=== PATIENT | female | born 1955 | race African-American/Black ===

== ENCOUNTER 2016-10-12 19:04 | Inpatient (IN) | payer BC, OTHER ==
[~2016-10-12] VITALS: Ht 162.6 cm; Wt 81.2 kg
[~2016-10-12 19:04] MED LIST: AMLO10TA2 PO; HYDR-2678 PO; LEVO500T38 PO; METR500T PO; ONDA4TAB10 SL
--- NOTE | 2016-10-12 19:35 | PHYS DOC ---
Past Medical History Past Medical History: Diverticulitis, GERD, Hypertension, Other Additional Past Medical Histor: sarcoidosis Past Surgical History: Appendectomy, Cholecystectomy, Hysterectomy, Other Additional Past Surgical Histo: adhesion surgery, wisdom teeth, hernia repair, hemorroid Alcohol Use: Occasionally Drug Use: None Adult General Chief Complaint Chief Complaint: HYPERTENSION HPI HPI 61-year-old female presents with worsening headache and lightheadedness as well as some mild sensory abnormalities in her right lower extremity that she states it worsened throughout today and yesterday. Patient does have history of hypertension for which she takes hydralazine daily and states she's been compliant. She took her blood pressure was extremely elevated today 1 to come in for evaluation. Upon arrival her blood pressure is 236/116. She denies any history of cardiac disease. She denies any chest pain or shortness of breath. Review of Systems Review of Systems Constitutional: Denies fever or chills [] Eyes: Denies change in visual acuity, redness, or eye pain [] HENT: Denies nasal congestion or sore throat [] Respiratory: Denies cough or shortness of breath [] Cardiovascular: No additional information not addressed in HPI [] GI: Denies abdominal pain, nausea, vomiting, bloody stools or diarrhea [] : Denies dysuria or hematuria [] Musculoskeletal: Denies back pain or joint pain [] Integument: Denies rash or skin lesions [] Neurologic: Has headache, denies focal weakness, has sensory changes [] Endocrine: Denies polyuria or polydipsia [] Current Medications Current Medications Current Medications Medications (Trade) Dose Ordered Sig/Maritza Start Time Stop Time Status Last Admin Dose Admin Nicardipine HCl/ Sodium Chloride (Cardene/Iv Sodium Chloride 0.9% 250ml) 270 ml @ 0 mls/hr CONT PRN 10/12/16 19:45 10/12/16 19:52 50 MLS/HR Allergies Allergies Allergies Coded Allergies Type Severity Reaction Last Updated Verified codeine Allergy Unknown 07/12/14 No Physical Exam Physical Exam Constitutional: Well developed, well nourished, no acute distress, non-toxic appearance. [] HENT: Normocephalic, atraumatic, bilateral external ears normal, oropharynx moist, no oral exudates, nose normal. [] Eyes: PERRLA, EOMI, conjunctiva normal, no discharge. [] Neck: Normal range of motion, no tenderness, supple, no stridor. [] Cardiovascular:Heart rate regular rhythm, no murmur [] Lungs & Thorax: Bilateral breath sounds clear to auscultation [] Abdomen: Bowel sounds normal, soft, no tenderness, no masses, no pulsatile masses. [] Skin: Warm, dry, no erythema, no rash. [] Back: No tenderness, no CVA tenderness. [] Extremities: No tenderness, no cyanosis, no clubbing, ROM intact, no edema. [] Neurologic: Alert and oriented X 3, normal motor function, normal sensory function, no focal deficits noted. [] Psychologic: Affect normal, judgement normal, mood normal. [] Current Patient Data Vital Signs Vital Signs Date Time Temp Pulse Resp B/P Pulse Ox O2 Delivery O2 Flow Rate FiO2 10/12/16 19:30 98.5 88 13 240/121 100 Room Air 98.5 Lab Values Laboratory Tests Test 10/12/16 19:22 White Blood Count 12.1x10^3/uL (4.0-11.0) H Red Blood Count 4.69x10^6/uL (3.50-5.40) Hemoglobin 13.4g/dL (12.0-15.5) Hematocrit 40.7% (36.0-47.0) Mean Corpuscular Volume 87fL (79-100) Mean Corpuscular Hemoglobin 29pg (25-35) Mean Corpuscular Hemoglobin Concent 33g/dL (31-37) Red Cell Distribution Width 14.6% (11.5-14.5) H Platelet Count 196x10^3/uL (140-400) Neutrophils (%) (Auto) 61% (31-73) Lymphocytes (%) (Auto) 32% (24-48) Monocytes (%) (Auto) 6% (0-9) Eosinophils (%) (Auto) 1% (0-3) Basophils (%) (Auto) 1% (0-3) Neutrophils # (Auto) 7.3x10^3uL (1.8-7.7) Lymphocytes # (Auto) 3.9x10^3/uL (1.0-4.8) Monocytes # (Auto) 0.7x10^3/uL (0.0-1.1) Eosinophils # (Auto) 0.1x10^3/uL (0.0-0.7) Basophils # (Auto) 0.1x10^3/uL (0.0-0.2) Sodium Level 140mmol/L (136-145) Potassium Level 3.9mmol/L (3.5-5.1) Chloride Level 103mmol/L (98-107) Carbon Dioxide Level 26mmol/L (21-32) Anion Gap 11 (6-14) Blood Urea Nitrogen 17mg/dL (7-20) Creatinine 0.8mg/dL (0.6-1.0) Estimated GFR (Cockcroft-Gault) 88.5 Glucose Level 104mg/dL (70-99) H Calcium Level 9.8mg/dL (8.5-10.1) Troponin I Quantitative < 0.017ng/mL (0.000-0.055) Laboratory Tests 10/12/16 19:22 Laboratory Tests 10/12/16 19:22 EKG EKG EKG is interpreted by me shows a sinus rhythm with rate 89 bpm. There are no acute ST findings on this EKG. Intervals are normal. There is no ectopy. Radiology/Procedures Radiology/Procedures One view of the chest as interpreted by id does not reveal an acute cardiopulmonary process. CT of the head demonstrated the following: No acute intracranial hemorrhage or midline shift or mass-effect or hydrocephalus or extra-axial fluid collection is seen. No focal hypodense area is seen to indicate an acute infarct or edema radiographically. No skull fracture or pneumocephalus is seen. No opacification of the mastoid sinuses or the paranasal sinuses is seen. The maxillary sinuses are not completely seen in this study Course & Med Decision Making Course & Med Decision Making Pertinent Labs and Imaging studies reviewed. (See chart for details) This 61-year-old female who has uncontrolled hypertension is very symptomatic with her elevated blood pressure and for this reason I will be admitting her for hypertensive urgency. I will order nicardipine drip to necessitate a gradual reduction in her blood pressure and also obtain lab work and head CT to rule out any other acute causes. Her laboratory workup is unremarkable. EKG and chest x-ray were negative for any acute abnormalities. Her head CT was also negative. I Cardene drip was ordered and her blood pressure did improve slightly. Upon my reassessment, the patient had a blood pressure 175/95. Per the nurse that transported the patient to the ICU, a repeat blood pressure was 189/91 and she was recalibrated with her nicardipine. Her case was discussed with the hospitalist, Dr. Liu, who agreed with this treatment plan and the need for admission. I believe her symptoms are likely stress related and hypertensive urgency induced. Approximately 30 minutes of critical care time were used in consultation with specialists. Dragon Disclaimer Dragon Disclaimer This electronic medical record was generated, in whole or in part, using a voice recognition dictation system. Critical Care Time Critical care time was 30 minutes exclusive of procedures. Departure Departure Impression: Primary Impression: Hypertensive urgency Additional Impression: Headache Disposition: ADMITTED INPATIENT Admitting Physician: Shelton Liu Condition: STABLE Referrals: MARIE DO MD (PCP) Critical Care Time Critical care time was 30 minutes exclusive of procedures. Problem Qualifiers JANE DORSEY DO Oct 12, 2016 19:35
[2016-10-12 19:37] LABS: BASO # 0.1 x10^3/uL (0.0-0.2); BASO % 1 % (0-3); EOS % 1 % (0-3); HEMATOCRIT 40.7 % (36.0-47.0); HEMOGLOBIN 13.4 g/dL (12.0-15.5); LYMPH # 3.9 x10^3/uL (1.0-4.8); LYMPH % 32 % (24-48); MEAN CORPUSCULAR HEMOGLOBIN 29 pg (25-35); MEAN CORPUSCULAR HGB CONC 33 g/dL (31-37); MEAN CORPUSCULAR VOLUME 87 fL (79-100); MONO % 6 % (0-9); NEUT % 61 % (31-73); PLATELET COUNT 196 x10^3/uL (140-400); RED BLOOD COUNT 4.69 x10^6/uL (3.50-5.40); RED CELL DISTRIBUTION WIDTH 14.6 % (11.5-14.5); WHITE BLOOD COUNT 12.1 x10^3/uL (4.0-11.0)
[2016-10-12] MEDS: NICARDIPINE HCL 50 MG in IV NORMAL SALINE 250ML 250 ML IV PRN (19:52)
--- NOTE | 2016-10-12 20:06 | RAD ---
PROCEDURE Noncontrast head CT HISTORY Headache with hypertension today. Dizziness. Lower extremity numbness. TECHNIQUE Noncontrast axial cross sectional CT scanning of the head was performed. One or more of the following individualized dose reduction techniques were utilized for this study: 1. Automated exposure control 2. Adjustment of the mA and/or kV according to patient size 3. Use of iterative reconstruction technique COMPARISON None available. FINDINGS No acute intracranial hemorrhage or midline shift or mass-effect or hydrocephalus or extra-axial fluid collection is seen. No focal hypodense area is seen to indicate an acute infarct or edema radiographically. No skull fracture or pneumocephalus is seen. No opacification of the mastoid sinuses or the paranasal sinuses is seen. The maxillary sinuses are not completely seen in this study. IMPRESSION No acute intracranial abnormality is seen. Electronically signed by: Zoran Crowder MD (Oct 12, 2016 20:05:29)
[2016-10-12] MEDS ORDERED: FENTANYL PF 100 MCG/2 ML VIAL. IV ONE (20:45)
[2016-10-12] MEDS ORDERED: ONDANSETRON PF 4 MG/2 ML VIAL. IV ONE (20:45)
[2016-10-12] MEDS ORDERED: FENTANYL PF 100 MCG/2 ML VIAL. IV PRN (20:45)
[2016-10-12] MEDS ORDERED: ONDANSETRON PF 4 MG/2 ML VIAL. IV PRN ×2 (20:45→21:45)
[2016-10-12] MEDS ORDERED: ACETAMINOPHEN 325 MG TABLET. PO PRN (20:45)
[2016-10-12 21:00] LABS: CALCIUM 9.8 mg/dL (8.5-10.1); CREATININE 0.8 mg/dL (0.6-1.0); GFR 88.5; POTASSIUM 3.9 mmol/L (3.5-5.1)
[2016-10-12 21:30] VITALS: BP 165/85
[2016-10-12 21:45] VITALS: BP 172/78
[2016-10-12] MEDS ORDERED: hydrALAZINE 20 MG/ML VIAL. IVP PRN (21:45)
[2016-10-12] MEDS ORDERED: ALBUTEROL SULFATE 2.5 MG/3 ML NEBU. NEB PRN (21:45)
[2016-10-12 22:00] VITALS: BP 160/76
[2016-10-12 22:15] VITALS: BP 157/82
[2016-10-12 23:00] VITALS: BP_SYST 107; BP_SYST 168; BP_DIAS 77; BP_DIAS 83
[2016-10-12] MEDS ORDERED: HYDR-2869 PO (23:41)
[2016-10-13] VITALS (16 sets, daily range): BP systolic 107–171; BP diastolic 50–94
[2016-10-13] MEDS: NICARDIPINE HCL 50 MG in IV NORMAL SALINE 250ML 250 ML IV PRN ×2 (01:10→05:18)
[2016-10-13] MEDS: ACETAMINOPHEN 325 MG TABLET. PO PRN ×2 (01:18→18:37)
[2016-10-13 06:17] LABS: BASO # 0.1 x10^3/uL (0.0-0.2); BASO % 0 % (0-3); EOS % 0 % (0-3); HEMATOCRIT 40.2 % (36.0-47.0); HEMOGLOBIN 13.3 g/dL (12.0-15.5); LYMPH # 3.1 x10^3/uL (1.0-4.8); LYMPH % 22 % (24-48); MEAN CORPUSCULAR HEMOGLOBIN 28 pg (25-35); MEAN CORPUSCULAR HGB CONC 33 g/dL (31-37); MEAN CORPUSCULAR VOLUME 86 fL (79-100); MONO % 5 % (0-9); NEUT % 73 % (31-73); PLATELET COUNT 197 x10^3/uL (140-400); RED BLOOD COUNT 4.68 x10^6/uL (3.50-5.40); RED CELL DISTRIBUTION WIDTH 14.5 % (11.5-14.5); WHITE BLOOD COUNT 14.4 x10^3/uL (4.0-11.0)
[2016-10-13 06:44] LABS: CALCIUM 9.5 mg/dL (8.5-10.1); CREATININE 0.8 mg/dL (0.6-1.0); GFR 88.5
--- NOTE | 2016-10-13 08:37 | RAD ---
Exam: AP portable chest. History: Weakened dizziness, frequent hypertension. Comparison: 10/10/2008. Findings: The heart and mediastinal structures are within normal limits for size. Lungs are without infiltrate. No pneumothorax or pleural effusion is appreciated. Previously identified left lower lobe infiltrate has resolved. Impression: 1. No acute cardiopulmonary process.
[2016-10-13] MEDS: HYDRALAZINE 50 MG TABLET PO SCH ×3 (08:58→21:21)
--- NOTE | 2016-10-13 09:47 | PDOC1 ---
History and Physical Past Medical History Past Medical History Past Medical History: Diverticulitis, GERD, Hypertension, O sarcoidosis Past Surgical History: Appendectomy, Cholecystectomy, Hysterectomy, adhesion surgery, wisdom teeth, hernia repair, hemorroid Family History Family History: Hypertension Social History Smoke: No ALCOHOL: occassional Drugs: None Current Problem List Problem List Problems Medical Problems: (1) Headache Status: Acute (2) Hypertensive urgency Status: Acute Current Medications Current Medications Current Medications Medications (Trade) Dose Ordered Sig/Maritza Start Time Stop Time Status Last Admin Dose Admin Acetaminophen (Tylenol) 325 mg PRN Q6HRS PRN 10/12/16 21:45 10/13/16 01:18 325 MG Albuterol Sulfate (Ventolin Neb Soln) 2.5 mg PRN Q4HRS PRN 10/12/16 21:45 Fentanyl Citrate (Fentanyl 2ml Vial) 50 mcg PRN Q2HR PRN 10/12/16 20:45 10/13/16 20:44 Hydralazine HCl (Apresoline) 50 mg TID 10/13/16 09:00 10/13/16 08:58 50 MG Nicardipine HCl/ Sodium Chloride (Cardene/Iv Sodium Chloride 0.9% 250ml) 270 ml @ 0 mls/hr CONT PRN 10/12/16 19:45 10/13/16 05:18 54 MLS/HR Ondansetron HCl (Zofran) 4 mg PRN Q8HRS PRN 10/12/16 21:45 Allergies Allergies Allergies Coded Allergies Type Severity Reaction Last Updated Verified codeine Allergy Unknown 07/12/14 No ROS Review of System CONSTITUTIONAL: No fever or chills BUT Weakness EYES: No recent changes SKIN: No rash or itching CARDIOVASCULAR: No chest pain, syncope, palpitations, or edema RESPIRATORY: No SOB or cough GASTROINTESTINAL: No nausea, vomiting or abdominal pain NEUROLOGICAL: No headaches or weakness ENDOCRINE: No cold or heat intolerance GENITOURINARY: No urgency or frequency of urination MUSCULOSKELETAL: No back pain or joint pain LYMPHATICS: No enlarged lymph nodes PSYCHIATRIC: No anxiety or depression Physical Exam Physical Exam GEN.: No apparent distress. Alert and oriented. HEENT: Head is normocephalic, atraumatic NECK: Supple. no jvd LUNGS: Clear to auscultation. normal air flow HEART: RRR, S1, S2 present. Peripheral pulses intact ABDOMEN: Soft, nontender. Positive bowel sounds. EXTREMITIES: Without any cyanosis. NEUROLOGIC: Normal speech, normal tone PSYCHIATRIC: Normal affect, normal mood. SKIN: No ulcerations Vitals Vitals Vital Signs Date Time Temp Pulse Resp B/P Pulse Ox O2 Delivery O2 Flow Rate FiO2 10/13/16 09:35 99 Room Air 10/13/16 09:34 96 20 141/75 10/13/16 07:00 98.0 98.0 Labs Labs Laboratory Tests Test 10/12/16 19:22 10/13/16 05:37 10/13/16 06:00 White Blood Count 12.1x10^3/uL (4.0-11.0) 14.4x10^3/uL (4.0-11.0) Red Blood Count 4.69x10^6/uL (3.50-5.40) 4.68x10^6/uL (3.50-5.40) Hemoglobin 13.4g/dL (12.0-15.5) 13.3g/dL (12.0-15.5) Hematocrit 40.7% (36.0-47.0) 40.2% (36.0-47.0) Mean Corpuscular Volume 87fL (79-100) 86fL (79-100) Mean Corpuscular Hemoglobin 29pg (25-35) 28pg (25-35) Mean Corpuscular Hemoglobin Concent 33g/dL (31-37) 33g/dL (31-37) Red Cell Distribution Width 14.6% (11.5-14.5) 14.5% (11.5-14.5) Platelet Count 196x10^3/uL (140-400) 197x10^3/uL (140-400) Neutrophils (%) (Auto) 61% (31-73) 73% (31-73) Lymphocytes (%) (Auto) 32% (24-48) 22% (24-48) Monocytes (%) (Auto) 6% (0-9) 5% (0-9) Eosinophils (%) (Auto) 1% (0-3) 0% (0-3) Basophils (%) (Auto) 1% (0-3) 0% (0-3) Neutrophils # (Auto) 7.3x10^3uL (1.8-7.7) 10.5x10^3uL (1.8-7.7) Lymphocytes # (Auto) 3.9x10^3/uL (1.0-4.8) 3.1x10^3/uL (1.0-4.8) Monocytes # (Auto) 0.7x10^3/uL (0.0-1.1) 0.7x10^3/uL (0.0-1.1) Eosinophils # (Auto) 0.1x10^3/uL (0.0-0.7) 0.0x10^3/uL (0.0-0.7) Basophils # (Auto) 0.1x10^3/uL (0.0-0.2) 0.1x10^3/uL (0.0-0.2) Sodium Level 140mmol/L (136-145) 141mmol/L (136-145) Potassium Level 3.9mmol/L (3.5-5.1) 4.0mmol/L (3.5-5.1) Chloride Level 103mmol/L (98-107) 104mmol/L (98-107) Carbon Dioxide Level 26mmol/L (21-32) 25mmol/L (21-32) Anion Gap 11 (6-14) 12 (6-14) Blood Urea Nitrogen 17mg/dL (7-20) 13mg/dL (7-20) Creatinine 0.8mg/dL (0.6-1.0) 0.8mg/dL (0.6-1.0) Estimated GFR (Cockcroft-Gault) 88.5 88.5 Glucose Level 104mg/dL (70-99) 118mg/dL (70-99) Calcium Level 9.8mg/dL (8.5-10.1) 9.5mg/dL (8.5-10.1) Troponin I Quantitative < 0.017ng/mL (0.000-0.055) Laboratory Tests Test 10/12/16 19:22 10/13/16 05:37 10/13/16 06:00 White Blood Count 12.1x10^3/uL (4.0-11.0) 14.4x10^3/uL (4.0-11.0) Red Blood Count 4.69x10^6/uL (3.50-5.40) 4.68x10^6/uL (3.50-5.40) Hemoglobin 13.4g/dL (12.0-15.5) 13.3g/dL (12.0-15.5) Hematocrit 40.7% (36.0-47.0) 40.2% (36.0-47.0) Mean Corpuscular Volume 87fL (79-100) 86fL (79-100) Mean Corpuscular Hemoglobin 29pg (25-35) 28pg (25-35) Mean Corpuscular Hemoglobin Concent 33g/dL (31-37) 33g/dL (31-37) Red Cell Distribution Width 14.6% (11.5-14.5) 14.5% (11.5-14.5) Platelet Count 196x10^3/uL (140-400) 197x10^3/uL (140-400) Neutrophils (%) (Auto) 61% (31-73) 73% (31-73) Lymphocytes (%) (Auto) 32% (24-48) 22% (24-48) Monocytes (%) (Auto) 6% (0-9) 5% (0-9) Eosinophils (%) (Auto) 1% (0-3) 0% (0-3) Basophils (%) (Auto) 1% (0-3) 0% (0-3) Neutrophils # (Auto) 7.3x10^3uL (1.8-7.7) 10.5x10^3uL (1.8-7.7) Lymphocytes # (Auto) 3.9x10^3/uL (1.0-4.8) 3.1x10^3/uL (1.0-4.8) Monocytes # (Auto) 0.7x10^3/uL (0.0-1.1) 0.7x10^3/uL (0.0-1.1) Eosinophils # (Auto) 0.1x10^3/uL (0.0-0.7) 0.0x10^3/uL (0.0-0.7) Basophils # (Auto) 0.1x10^3/uL (0.0-0.2) 0.1x10^3/uL (0.0-0.2) Sodium Level 140mmol/L (136-145) 141mmol/L (136-145) Potassium Level 3.9mmol/L (3.5-5.1) 4.0mmol/L (3.5-5.1) Chloride Level 103mmol/L (98-107) 104mmol/L (98-107) Carbon Dioxide Level 26mmol/L (21-32) 25mmol/L (21-32) Anion Gap 11 (6-14) 12 (6-14) Blood Urea Nitrogen 17mg/dL (7-20) 13mg/dL (7-20) Creatinine 0.8mg/dL (0.6-1.0) 0.8mg/dL (0.6-1.0) Estimated GFR (Cockcroft-Gault) 88.5 88.5 Glucose Level 104mg/dL (70-99) 118mg/dL (70-99) Calcium Level 9.8mg/dL (8.5-10.1) 9.5mg/dL (8.5-10.1) Troponin I Quantitative < 0.017ng/mL (0.000-0.055) VTE Prophylaxis Ordered VTE Prophylaxis Devices: Yes VTE Pharmacological Prophylaxi: No ISABEL BENZ MD Oct 13, 2016 09:47
--- NOTE | 2016-10-13 11:32 | HP ---
ADMIT DATE: 10/13/2016 CHIEF COMPLAINT: Generalized weakness. HISTORY OF PRESENT ILLNESS: A 61-year-old -[place] female with prior history of hypertension for a long time, presented to the ER with complaints of headache and lightheadedness and also complaints of some sensory changes in lower extremities. Upon arrival, the patient's blood pressure was 236/116. The patient denies any noncompliance with medications; however, she has a lot of stress in her life and she is taking care of several of her family members. She was requiring nicardipine GTT and ICU admission to control her blood pressure. At the time of my examination, she denies any chest pain, shortness of breath, headache or blurring of vision and she is feeling better. PAST MEDICAL HISTORY, REVIEW OF SYSTEMS, PHYSICAL EXAMINATION: Please see my electronic H and P. LABORATORY FINDINGS: WBC is 12.1 and MCV is 87,000, platelets 196. Chemistries: Sodium 140, potassium 3.9, chloride 103, carbon dioxide 26, anion gap 11. Creatinine is 0.8. Troponin is less than 0.017. IMAGING STUDIES: Chest x-ray, no acute cardiopulmonary process and CT of the head showed no acute intracranial abnormality. ASSESSMENT: 1. Hypertensive urgency, present on admission. 2. Gastroesophageal reflux disease. 3. Sarcoidosis. PLAN: The patient was placed in the Critical Care Unit and she was on nicardipine drip. Currently she is on nicardipine drip, at very low dose. Home dose of hydralazine has been started and goal is to keep her blood pressure less than 140 systolic. If the patient is asymptomatic and able to hold her blood pressures around 140 without any drip, anticipated discharge today. The patient is advised to speak with the family doctor and she needs an echocardiogram and ultrasound of the to rule out any structural abnormalities. ISABEL BENZ MD DR: OLVIN/priscila JOB#: [id number] / [id number]
--- NOTE | 2016-10-13 12:02 | EKG ---
[facility] [address] [place] [address] Test Date: 2016-10-12 Test Time: 19:33:36 Pat Name: ARLEY THACKER Department: Room: [facility] Gender: F Body Mechanic: : 1955 Requested By: JANE DORSEY Order Number: [id number] Reading MD: Pj Ahumada Measurements Intervals [place] Rate: 89 P: 32 ME: 148 QRS: 3 QRSD: 78 T: 70 QT: 370 QTc: 451 Interpretive Statements SINUS RHYTHM Electronically Signed On 10-16-2016 10:44:59 [employer]AT REPAIR INSPECTOR by Pj Ahumada
[2016-10-14 03:00] VITALS: BP 143/83
[2016-10-14 07:00] VITALS: BP 138/70
[2016-10-14] MEDS: HYDRALAZINE 50 MG TABLET PO SCH (07:47)
[2016-10-14 11:00] VITALS: BP 127/83
--- NOTE | 2016-10-14 11:26 | PDOC3 ---
Discharge Summary Visit Information Date of Admission: Oct 12, 2016 Date of Discharge: Oct 14, 2016 Admitting Diagnosis: headahce Final Diagnosis 1. Hypertensive urgency, present on admission. 2. Gastroesophageal reflux disease. 3. Sarcoidosis. Problems Medical Problems: (1) Headache Status: Acute (2) Hypertensive urgency Status: Acute Brief Hospital Course Allergies Allergies Coded Allergies Type Severity Reaction Last Updated Verified codeine Allergy Unknown 07/12/14 No Vital Signs Vital Signs Date Time Temp Pulse Resp B/P Pulse Ox O2 Delivery O2 Flow Rate FiO2 10/14/16 11:00 98.1 97 127/83 98 Room Air 98.1 10/13/16 23:00 17 Lab Results Laboratory Tests Test 10/12/16 19:22 10/12/16 22:45 10/13/16 05:37 10/13/16 06:00 White Blood Count 12.1x10^3/uL (4.0-11.0) 14.4x10^3/uL (4.0-11.0) Red Blood Count 4.69x10^6/uL (3.50-5.40) 4.68x10^6/uL (3.50-5.40) Hemoglobin 13.4g/dL (12.0-15.5) 13.3g/dL (12.0-15.5) Hematocrit 40.7% (36.0-47.0) 40.2% (36.0-47.0) Mean Corpuscular Volume 87fL (79-100) 86fL (79-100) Mean Corpuscular Hemoglobin 29pg (25-35) 28pg (25-35) Mean Corpuscular Hemoglobin Concent 33g/dL (31-37) 33g/dL (31-37) Red Cell Distribution Width 14.6% (11.5-14.5) 14.5% (11.5-14.5) Platelet Count 196x10^3/uL (140-400) 197x10^3/uL (140-400) Neutrophils (%) (Auto) 61% (31-73) 73% (31-73) Lymphocytes (%) (Auto) 32% (24-48) 22% (24-48) Monocytes (%) (Auto) 6% (0-9) 5% (0-9) Eosinophils (%) (Auto) 1% (0-3) 0% (0-3) Basophils (%) (Auto) 1% (0-3) 0% (0-3) Neutrophils # (Auto) 7.3x10^3uL (1.8-7.7) 10.5x10^3uL (1.8-7.7) Lymphocytes # (Auto) 3.9x10^3/uL (1.0-4.8) 3.1x10^3/uL (1.0-4.8) Monocytes # (Auto) 0.7x10^3/uL (0.0-1.1) 0.7x10^3/uL (0.0-1.1) Eosinophils # (Auto) 0.1x10^3/uL (0.0-0.7) 0.0x10^3/uL (0.0-0.7) Basophils # (Auto) 0.1x10^3/uL (0.0-0.2) 0.1x10^3/uL (0.0-0.2) Sodium Level 140mmol/L (136-145) 141mmol/L (136-145) Potassium Level 3.9mmol/L (3.5-5.1) 4.0mmol/L (3.5-5.1) Chloride Level 103mmol/L (98-107) 104mmol/L (98-107) Carbon Dioxide Level 26mmol/L (21-32) 25mmol/L (21-32) Anion Gap 11 (6-14) 12 (6-14) Blood Urea Nitrogen 17mg/dL (7-20) 13mg/dL (7-20) Creatinine 0.8mg/dL (0.6-1.0) 0.8mg/dL (0.6-1.0) Estimated GFR (Cockcroft-Gault) 88.5 88.5 Glucose Level 104mg/dL (70-99) 118mg/dL (70-99) Calcium Level 9.8mg/dL (8.5-10.1) 9.5mg/dL (8.5-10.1) Troponin I Quantitative < 0.017ng/mL (0.000-0.055) Nasal Screen MRSA (PCR) Negative (Negative) Brief Hospital Course Ms. Sanz is a 61 old female, admt to ICU with nicardipene gtt for emergent HTN , accelerated htn, weaned off, started home med. pt was tired but no HAMMOND, felt OK for DC she thinks stress at home drove her BP problem Discharge Information Condition at Discharge: Improved Follow Up: Weeks Disposition/Orders: D/C to Home Scheduled Hydralazine Hcl (Hydralazine Hcl) 1 TAB PO TID (Reported) Patient Instructions Patient Instructions f/u Dr. Loza consider changing Hydralazine for norvasc at her discretion time > 30min KAROLYN WALTON MD Oct 14, 2016 11:26
--- NOTE | 2016-10-15 17:19 | ACF ---
Admission Forms Criteria HYPERTENSION Clinical Indications for Admission to Inpatient Care ( Place "X" for any and all applicable criteria): Admission is indicated for ANY ONE of the following(1)(2)(3)(4): [ ]I. Hypertensive emergency, with evidence of acute and progressing target organ disease as indicated by ANY ONE of the following: [ ]a) Hypertensive encephalopathy (eg, confusion, altered mental status) [ ]b) Cerebral infarction [ ]c) Intracranial hemorrhage [ ]d) Myocardial ischemia or infarction [ ]e) Pulmonary edema [ ]f) Aortic dissection [ ]g) Seizure [ ]h) Acute renal insufficiency [ ]i) Papilledema [ ]j) Microangiopathic hemolytic anemia [ ]II. Adrenergic crisis (eg, severe hypertension due to pheochromocytoma crisis, cocaine or amphetamine intoxication, or clonidine withdrawal) [X]III. Severe hypertension (SBP greater than 180 mmHg or DBP greater than 110 mmHg or greater than the 95th percentile for age, gender, and height in pediatric patients) that cannot be controlled (eg, to SBP less than 160 mmHg and DBP less than 100 mmHg in adults) by treatment with oral medication in emergency department or observation care Extended stay beyond goal length of stay may be needed for(11)(12)(13): [ ]a) Persistent hypertensive encephalopathy [ ]b) Continuation of pulmonary edema [ ]c) Recurring or persistent severe hypertension [ ]d) Target organ damage (eg, angina, stroke, aortic dissection) [ ]e) Associated renal insufficiency The original [facility] content created by [employer] has been revised. The portions of the content which have been revised are identified through the use of italic text or in bold, and [facility] has neither reviewed nor approved the modified material. All other unmodified content is copyright [facility]. Please see references footnoted in the original [facility] edition 2016 Admission Criteria Met?: Yes HALEY SAENZ Oct 15, 2016 17:19
== END 2016-10-14 13:30 | disposition home or self-care (01) | DRG 305 ==
LOC: ER 19:04 → 1 WEST ICU 20:38 → 6 SOUTH 10-13 11:20
PROVIDERS: ADMIT Internal Medicine; ATTEND Internal Medicine
DX: I16.0 Hypertensive urgency (principal); K21.9 Gastro-esophageal reflux disease without esophagitis; I10 Essential (primary) hypertension; D86.9 Sarcoidosis, unspecified; Z82.49 Family history of ischemic heart disease and other diseases of the circulatory system; Z90.49 Acquired absence of other specified parts of digestive tract; Z90.710 Acquired absence of both cervix and uterus; Z98.890 Other specified postprocedural states; Z88.5 Allergy status to narcotic agent
CPT/HCPCS: 36415; 70450; 71010; 80048; 84484; 85027; 87641; 93005; 94250; 94760; 96374; 96375; J0360; J2405; J3010; J7050; 99291-25; J7030

== ENCOUNTER → 2017-01-28 | Outpatient (CLI) | payer OTHER ==
[~2017-01-28] MED LIST changes: +HYDR-2869 PO
--- NOTE | 2017-01-28 13:06 | RAD ---
DATE: 01/28/2017 EXAM: DIGITAL SCREEN BILAT W/CAD HISTORY: Routine screening COMPARISON: 09/20/2011 This study was interpreted with the benefit of Computerized Aided Detection (CAD). FINDINGS: There are scattered fibroglandular densities in the breasts. There are unchanged lymph node type densities projected over the axillary tail region of the left breast and both axillae. No new or enlarging breast densities are seen. A few scattered benign type calcifications are present. No suspicious microcalcifications have developed. IMPRESSION: There is no mammographic evidence of malignancy either breast. BI-RADS CATEGORY: 2 BENIGN FINDING(S) RECOMMENDED FOLLOW-UP: 12M 12 MONTH FOLLOW-UP PQRS compliance statement: Patient information was entered into a reminder system with a target due date for the next mammogram. Mammography is a sensitive method for finding small breast cancers, but it does not detect them all and is not a substitute for careful clinical examination. A negative mammogram does not negate a clinically suspicious finding and should not result in delay in biopsying a clinically suspicious abnormality. "Our facility is accredited by the [employer] Mammography Program."
== END | disposition home or self-care (01) ==
LOC: MAMMO 08:59
DX: Z12.31 Encounter for screening mammogram for malignant neoplasm of breast (principal)
CPT/HCPCS: G0202; 77067

== ENCOUNTER → 2021-05-02 | Outpatient (CLI) | payer MEDICARE, OTHER ==
[~2021-05-02] MED LIST changes: +AMLO-187 PO; -AMLO10TA2 PO; -LEVO500T38 PO; +LEVO500T59 PO
--- NOTE | 2021-05-02 11:44 | RAD ---
EXAM: Bilateral digital screening mammogram with tomosynthesis. HISTORY: 66-year-old female presents for screening mammography. TECHNIQUE: Full-field digital craniocaudal and mediolateral oblique 2D and 3D tomosynthesis images of both breasts are obtained for evaluation. Computer aided detection was applied. COMPARISON: 01/28/2017 BREAST PARENCHYMAL DENSITY: Level B - Scattered fibroglandular densities. FINDINGS: There is no new suspicious mass, microcalcification or region of architectural distortion. There are stable areas of benign nodularity and asymmetry within both breasts, allowing for differenc es in imaging technique. There are benign complications within both breasts. IMPRESSION: BI-RADS Category 2: Benign finding(s). RECOMMENDATION: Annual mammography is recommended. If your mammogram demonstrates that you have dense breast tissue, which could hide abnormalities, and if you have other risk factors for breast cancer that have been identified, you might benefit from s upplemental screening tests that may be suggested by your ordering physician. Dense breast tissue, i n and of itself, is a relatively common condition. This information is not provided to cause undue c oncern, but rather to raise your awareness and to promote discussion with your physician regarding th e presence of other risk factors, in addition to dense breast tissue. A report of your mammography re sults will be sent to you and your physician. You should contact your physician if you have any ques tions or concerns regarding this report. Mammography is a sensitive method for finding small breast cancers, but it does not detect them all a nd is not a substitute for careful clinical examination. A negative mammogram does not negate a clin ically suspicious finding and should not result in delay in biopsying a clinically suspicious abnorma lity. PQRS compliance statement - Patient information was entered into a reminder system with a target due date for the next mammogram. "Our facility is accredited by the [employer] Mammography Program." Electronically signed by: Robyn Be MD (05/02/2021 11:42 AM) [id number]
== END ==
LOC: MAMMO 09:38
PROVIDERS: ATTEND Family Medicine
DX: Z12.31 Encounter for screening mammogram for malignant neoplasm of breast (principal)
CPT/HCPCS: 77063; 77067

== ENCOUNTER → 2021-06-22 | Outpatient (CLI) | payer MEDICARE ==
[~2021-06-22] MED LIST changes: +REGADENOSON 0.4 MG/5 ML DISP.SYRIN. IV ONE
--- NOTE | 2021-06-22 16:40 | RAD ---
MR#: [id number] Date of Study: 06/22/2021 Ordering Physician: DARLENE ANN Referring Physician: IRIS GREEN Tech: RT Sarita (R) (N) APPROVED REPORT Test Type: Pharmacological Stress Nurse/Tech: KINGSTON HERMAN Test Indications: CHEST PAIN Cardiac History: HTN- SEE EMR Medications: SEE EMR Medical History: SEE EMR Resting ECG: SR Resting Heart Rate: 56 bpm Resting Blood Pressure: 159/86mmHg Pretest Chest Pain: No chest pain Nurse/Tech Notes MURMUR NOTED, LUNGS CTA, DENIED CHEST PAIN OR SOA, VSS. Consent: The procedure was explained to the patient in lay terms. Informed consent was witnessed. Allen eout was entered into [employer]. History and Stress Test performed by ABDIAZIZ Mehta, XIMENA (R) (N) Pharm. Details Pharmacologic stress testing was performed using 0.4mg per 5ml of regadenoson given intravenously ove r 7-10 seconds. Stress Symptoms PT COMPLAINED OF NAUSEA INITIALLY, THE SYMPTOM RESOLVED. DENIED CHEST PAIN. VSS POST EXERCISE Reason for Termination: Infusion complete Max HR: 105 bpm Max Blood Pressure: 145/77mmHg Blood Pressure response to exercise: Normal blood pressure response during stress. Heart Rate response to exercise: WNL Chest Pain: No. Arrhythmia: No. ST Change: No. INTERPRETATION Stress EKG Conclusion: Baseline EKG showed sinus rhythm. No ischemic changes at peak stress. No arr hythmias. Imaging Protocol IMAGE PROTOCOL: Rest Tc-99m/stress Tc-99m 1 day Rest: Stress: Viability: Radiopharm.Tc99m RtmxsiutaNb24j Sestamibi Dose9.1mCi 31mCi Duration 15min. 10min. Img Date 06/22/2021 06/22/2021 Inj-Img Miqb15aig. 60min. Rest Admin Site:IV - Left AntecubitalAdministrator:RT Mohinder SteinR)(N) Stress Admin Site: IV - Left AntecubitalAdministrator: ABDIAZIZ Mehta, XIMENA (R)(N) STRESS DATA End Diast. Vol.42.0mlAv. Heart Rate92.0bpm End Syst. Vol.2.0mlCO Index BSA0.0L/min Myocardial Mass86.0gEject. Pukslwjp29.0% Stress Rates Pk. Fill Rate2.42EDV/secLVtime Pk. Fill 63.17msec Pk. Empty Rate6.04ESV/secLVtime Pk. Eject98.05msec /3 Pk. Fill1.67EDV/sec Stress Scores Regional WT1.00Summed WT6.00 Regional WM0.00Summed WM1.00 Study quality was good. Left Ventricular size was Normal at Rest and Stress. Lung uptake was . Left Ventricular ejection fraction is 86%. The rest and stress images show normal perfusion, normal contraction and thickening. LV Perf. Quant 17 Seg. SSS0.00 17 Seg. SRS3.00 17 Seg. SDS0.00 Stress Defect Extent (% LAD)0.00Rest Defect Extent (% LAD)0.00Rev. Defect Extent (% LAD)0.00 Stress Defect Extent (% LCX) 0.00Rest Defect Extent (% LCX)13.80Rev. Defect Extent (% LCX)0.00 Stress Defect Extent (% RCA)0.00Rest Defect Extent (% RCA)0.00Rev. Defect Extent (% RCA)0.00 Stress Defect Extent (% ANAT)0.00Rest Defect Extent (% ANAT)2.80Rev. Defect Extent (% ANAT)0.00 Conclusion 1. Regadenoson cardioisotope stress test did not show any evidence of ischemia or infarct. 2. Normal left ventricular systolic function with ejection fraction calculated at 86%. 3. Low risk for cardiac events. Signed by : Darlene Ann, Electronically Approved : 06/22/2021 16:40:21
--- NOTE | 2021-06-22 16:59 | CARD ---
MR#: [id number] Date of Study: 06/22/2021 Ordering Physician: DARLENE OLIVAREZ, Referring Physician: DARLENE OLIVAREZ, Tech: Vanessa Traoretrumanscotty, [facility] APPROVED REPORT EXAM: Two-dimensional and M-mode echocardiogram with Doppler and color Doppler. Other Information Quality : Average INDICATION Chest Pain RISK FACTORS Hypertension Hyperlipidemia 2D DIMENSIONS Left Atrium(2D)2.9 (1.6-4.0cm)IVSd1.0 (0.7-1.1cm) Aortic Root(2D)2.3 (2.0-3.7cm)LVDd4.1 (3.9-5.9cm) LVOT Diameter1.9 (1.8-2.4cm)PWd1.0 (0.7-1.1cm) LVDs2.6 (2.5-4.0cm)FS (%) 37.4 % SV50.3 mlLVEF(%)68.0 (>50%) Aortic Valve AoV Peak Nathan.183.4cm/sAoV VTI37.7cm AO Peak GR.13.5mmHgLVOT Peak Nathan.119.4cm/s AO Mean GR.7mmHgAVA (VMAX)1.80cm2 Mitral Valve MV E Nyluiyyr17.0cm/sMV DECEL QOCX861hr MV A Hlvastfw06.0cm/sE/A Ratio0.9 Pulmonary Valve PV Peak Yyawaosb67.5cm/s Tricuspid Valve TR P. Omxaadxf986ks/sTR Peak Gr.28mmHg LEFT VENTRICLE The left ventricle is normal size. There is normal left ventricular wall thickness. The left ventricu lar systolic function is normal. The Ejection Fraction is 55-60%. There is normal LV segmental wall m otion. Transmitral Doppler flow pattern is Grade I-abnormal relaxation pattern. RIGHT VENTRICLE The right ventricle is normal size. There is normal right ventricular wall thickness. The right ventr icular systolic function is normal. ATRIA The left atrium size is normal. The right atrium size is normal. The interatrial septum is intact wit h no evidence for an atrial septal defect or patent foramen ovale as noted on 2-D or Doppler imaging. AORTIC VALVE The aortic valve is normal in structure and function. Doppler and Color Flow revealed no significant aortic regurgitation. Calculated aortic valve area is 1.9 cm2 with maximum pressure gradient of 14 mm Hg and mean pressure gradient of 8 mmHg. There is no significant aortic valvular stenosis. MITRAL VALVE The mitral valve is normal in structure and function. There is no evidence of mitral valve prolapse. There is no mitral valve stenosis. Doppler and Color-flow revealed trace mitral regurgitation. TRICUSPID VALVE The tricuspid valve is normal in structure and function. Doppler and Color Flow revealed trace tricus pid regurgitation with an estimated PAP of 31 mmHg. There is no tricuspid valve stenosis. PULMONIC VALVE The pulmonary valve is normal in structure and function. Doppler and Color Flow revealed trace pulmon ic valvular regurgitation. GREAT VESSELS The aortic root is normal in size. The IVC is normal in size and collapses >50% with inspiration. PERICARDIAL EFFUSION There is no evidence of significant pericardial effusion. Critical Notification Critical Value: No <Conclusion> The left ventricular systolic function is normal. The Ejection Fraction is 55-60%. There is normal LV segmental wall motion. Transmitral Doppler flow pattern is Grade I-abnormal relaxation pattern. Trace mitral regurgitation. Trace tricuspid regurgitation with an estimated PAP of 31 mmHg. There is no evidence of significant pericardial effusion. Signed by : Darlene Olivarez, Electronically Approved : 06/22/2021 16:58:38
== END ==
LOC: ECHO 09:13
PROVIDERS: ATTEND Internal Medicine Cardiovascular Disease
DX: R07.9 Chest pain, unspecified (principal); I10 Essential (primary) hypertension; E78.5 Hyperlipidemia, unspecified
CPT/HCPCS: 78452; 93017; 93306; A9500; J2785